=== PATIENT | female | born 1995 | race Caucasian/White ===

== ENCOUNTER 2021-11-04 10:46 | Inpatient (IN) | payer OTHER ==
[~2021-11-04] VITALS: Ht 149.9 cm; Wt 62.1 kg
[2021-11-04 11:21] LABS: HEMOGLOBIN 12.9 gm/dl (12.3-15.3); RED BLOOD COUNT 4.21 M/UL (4.00-5.10); WHITE BLOOD COUNT 7.1 K/UL (4.5-11.0)
[2021-11-04] MEDS ORDERED: HYDROCODONE-AC1 EACH PO (11:57)
[2021-11-04] MEDS ORDERED: DOCUSATE SODIU250 MG PO (11:57)
[2021-11-04] MEDS ORDERED: IBUPROFEN600 MG PO (11:57)
== END 2021-11-06 20:16 | disposition home or self-care (01) | DRG 787 ==
LOC: GENOP 10:46 → OB 10:56
PROVIDERS: ADMIT Obstetrics & Gynecology
PROC: 4A1HXCZ Monitoring of Products of Conception, Cardiac Rate, External Approach (ICD-10-PCS; 2021-11-04)
PROC: 10D00Z1 Extraction of Products of Conception, Low, Open Approach (ICD-10-PCS; principal; 2021-11-04 12:48)
DX: O34.211 Maternal care for low transverse scar from previous cesarean delivery (principal); O99.324 Drug use complicating childbirth; Z3A.39 39 weeks gestation of pregnancy; Z28.310 Unvaccinated for COVID-19; Z37.0 Single live birth; O99.334 Smoking (tobacco) complicating childbirth; F17.210 Nicotine dependence, cigarettes, uncomplicated; F12.10 Cannabis abuse, uncomplicated; Z88.8 Allergy status to other drugs, medicaments and biological substances; Z91.030 Bee allergy status; Z91.040 Latex allergy status; Z80.0 Family history of malignant neoplasm of digestive organs; Z80.41 Family history of malignant neoplasm of ovary; Z82.49 Family history of ischemic heart disease and other diseases of the circulatory system
CPT/HCPCS: 36415; 80307; 81001; 82800; 85014; 85018; 85025; C9113; J1170; J1200; J1580; J2405; J2550; J2590